=== PATIENT | male | born 1960 | race Caucasian/White ===

== ENCOUNTER 2020-07-13 09:14 | Observation (INO) ==
[2020-07-13] MEDS ORDERED: Isovue-370 500 ML BOTTLE IVP ONE (09:41)
[2020-07-13 10:23] LABS: Basophils # 0.1 K/mcL (0.0-0.2); Basophils % 0.6 %; Eosinophils % 0.3 %; Hematocrit 51.5 % (37.5-50.1); Hemoglobin 16.5 g/dL (12.9-16.9); Immature Granulocytes % 0.4 % (0-4); Lymphocytes # 0.6 K/mcL (0.6-4.6); Lymphocytes % 6.3 %; Mean Corpuscular Hemoglobin 30.9 pg (28.0-33.3); Mean Corpuscular Volume 96.4 fL (83.0-100.0); Mean Platelet Volume 10.8 fL (9.4-12.4); Monocytes # 1.4 K/mcL (0.0-1.3); Monocytes % 14.7 %; Neutrophils # 7.5 K/mcL (1.6-8.9); Platelet Count 159 K/mcL (140-400); Red Blood Count 5.34 M/mcL (4.19-5.50); Segmented Neutrophils % 77.7 %; White Blood Count 9.6 K/mcL (4.3-11.1)
[2020-07-13 10:44] LABS: BUN/Creatinine Ratio 12 (6-26); Blood Urea Nitrogen 9 mg/dL (8-23); C-Reactive Protein 45 mg/L (Less than 10); Calcium 8.9 mg/dL (8.6-10.3); Carbon Dioxide 25 mEq/L (23-29); Chloride 102 mEq/L (98-107); Glucose 134 mg/dL (70-105); Osmolality,Calculated 281 (280-300); Potassium 3.6 mEq/L (3.5-5.1); Sodium 135 mEq/L (136-145); eGFR For African Americans > 60 (> 60); eGFR For Non-African Americans > 60 (> 60)
[2020-07-13] MEDS ORDERED: 0.9 % Sodium Chloride 1,000 ML IVC ONE (13:35)
[2020-07-13] MEDS ORDERED: Dexamethasone 4 MG/ML VIAL IVP ONE (13:35)
[2020-07-13] MEDS ORDERED: Clindamycin 600 MG/50 ML 600 MG/50 ML IV.SOLN IVPB ONE (13:35)
[2020-07-13] MEDS ORDERED: Naloxone 0.4 MG/ML INJ IVP PRN (14:22)
[2020-07-13] MEDS ORDERED: MOM Conc 10 ML UD.LIQ PO PRN (14:22)
[2020-07-13] MEDS ORDERED: Ondansetron 4 MG/2 ML VIAL IVP PRN (14:22)
[2020-07-13] MEDS ORDERED: *HR* Promethazine 25 MG/ML VIAL IVP PRN (14:22)
[2020-07-13] MEDS ORDERED: Mag Hydrox/Al Hydrox/Simeth 30 ML UDC PO PRN (14:22)
[2020-07-13] MEDS ORDERED: Vancomycin 1,500 MG/265 ML IV.SOLN IVPB SCH (15:00)
[2020-07-13] MEDS: Clindamycin 600 MG/50 ML 600 MG/50 ML IV.SOLN IVPB SCH (18:07)
[2020-07-13] MEDS: *HR* Heparin 5,000 UNIT/ML VIAL SQ SCH (18:14)
[2020-07-13] MEDS: Vancomycin 1,500 MG/265 ML IV.SOLN IVPB SCH (20:08)
[2020-07-13] MEDS ORDERED: *HR* OxyCODONE Immed Rel 5 MG TABLET PO PRN (21:09)
[2020-07-13] MEDS: Dexamethasone 4 MG/ML VIAL IVP SCH (22:09)
[2020-07-14] MEDS: Clindamycin 600 MG/50 ML 600 MG/50 ML IV.SOLN IVPB SCH ×4 (00:05→23:11)
[2020-07-14 05:56] LABS: BUN/Creatinine Ratio 25 (6-26); Blood Urea Nitrogen 19 mg/dL (8-23); Calcium 8.7 mg/dL (8.6-10.3); Carbon Dioxide 24 mEq/L (23-29); Chloride 103 mEq/L (98-107); Glucose 174 mg/dL (70-105); Osmolality,Calculated 284 (280-300); Potassium 3.8 mEq/L (3.5-5.1); Sodium 134 mEq/L (136-145); eGFR For African Americans > 60 (> 60); eGFR For Non-African Americans > 60 (> 60)
[2020-07-14] MEDS: *HR* Heparin 5,000 UNIT/ML VIAL SQ SCH ×2 (06:09→18:15)
[2020-07-14] MEDS: Dexamethasone 4 MG/ML VIAL IVP SCH ×2 (06:10→14:36)
[2020-07-14] MEDS: Vancomycin 1,500 MG/265 ML IV.SOLN IVPB SCH (06:10)
[2020-07-14 07:32] LABS: Basophils % 0.2 %; Hematocrit 49.4 % (37.5-50.1); Hemoglobin 15.2 g/dL (12.9-16.9); Immature Granulocytes % 0.6 % (0-4); Lymphocytes # 0.6 K/mcL (0.6-4.6); Lymphocytes % 4.4 %; Mean Corpuscular HGB Conc 30.8 g/dL (31.6-35.5); Mean Corpuscular Hemoglobin 30.6 pg (28.0-33.3); Mean Corpuscular Volume 99.4 fL (83.0-100.0); Mean Platelet Volume 11.7 fL (9.4-12.4); Monocytes # 0.7 K/mcL (0.0-1.3); Monocytes % 5.9 %; Neutrophils # 11.1 K/mcL (1.6-8.9); Platelet Count 168 K/mcL (140-400); Red Blood Count 4.97 M/mcL (4.19-5.50); Red Cell Distribution Width 12.8 % (11.5-14.5); Segmented Neutrophils % 88.9 %; White Blood Count 12.5 K/mcL (4.3-11.1)
[2020-07-14] MEDS: Lactobacillus 1 EACH CAP.SPRINK PO SCH ×2 (09:17→21:25)
[2020-07-14] MEDS: Aspirin Enteric Coated 81 MG Tablet PO SCH (09:50)
[2020-07-14] MEDS: amLODIPine 5 MG TABLET PO SCH (09:50)
[2020-07-14] MEDS: lisinopriL 20 MG TABLET PO SCH (09:51)
[2020-07-14] MEDS: carvediloL 25 MG TABLET PO SCH (15:48)
[2020-07-15] MEDS: *HR* Heparin 5,000 UNIT/ML VIAL SQ SCH (05:21)
[2020-07-15 06:33] LABS: Hematocrit 45.6 % (37.5-50.1); Hemoglobin 14.7 g/dL (12.9-16.9); Mean Corpuscular HGB Conc 32.2 g/dL (31.6-35.5); Mean Corpuscular Hemoglobin 31.7 pg (28.0-33.3); Mean Corpuscular Volume 98.5 fL (83.0-100.0); Mean Platelet Volume 10.7 fL (9.4-12.4); Platelet Count 164 K/mcL (140-400); Red Blood Count 4.63 M/mcL (4.19-5.50); Red Cell Distribution Width 12.8 % (11.5-14.5); White Blood Count 13.3 K/mcL (4.3-11.1)
[2020-07-15 06:49] LABS: BUN/Creatinine Ratio 27 (6-26); Blood Urea Nitrogen 21 mg/dL (8-23); Calcium 8.6 mg/dL (8.6-10.3); Carbon Dioxide 26 mEq/L (23-29); Chloride 105 mEq/L (98-107); Glucose 128 mg/dL (70-105); Osmolality,Calculated 287 (280-300); Potassium 3.9 mEq/L (3.5-5.1); Sodium 136 mEq/L (136-145); eGFR For African Americans > 60 (> 60); eGFR For Non-African Americans > 60 (> 60)
[2020-07-15 06:59] VITALS: BP 131/72
[2020-07-15] MEDS: Lactobacillus 1 EACH CAP.SPRINK PO SCH (08:34)
[2020-07-15] MEDS: lisinopriL 20 MG TABLET PO SCH (08:34)
[2020-07-15] MEDS: Clindamycin 600 MG/50 ML 600 MG/50 ML IV.SOLN IVPB SCH (08:34)
[2020-07-15] MEDS: carvediloL 25 MG TABLET PO SCH (08:35)
[2020-07-15] MEDS: amLODIPine 5 MG TABLET PO SCH (08:35)
[2020-07-15] MEDS: Aspirin Enteric Coated 81 MG Tablet PO SCH (08:35)
[2020-07-15] MEDS ORDERED: FLU Vac QV 20-21 (6Month+)/PF 0.5 ML SYRINGE IM ONE (10:11)
== END 2020-07-15 10:34 | disposition home or self-care (01) ==
LOC: 3ANU 09:14 → EMEROOARM 09:14 → 3ANU 15:45
PROVIDERS: ADMIT Internal Medicine; ATTEND Internal Medicine